=== PATIENT | male | born 1955 | race Caucasian/White ===

== ENCOUNTER 2022-04-01 16:39 | Outpatient (CLI) | payer MEDICARE, BC ==
[2022-04-01 17:30] LABS: CHOL/HDL RATIO 3.8 (<5.0); CHOLESTEROL 219 mg/dL; HDL CHOLESTEROL 57 mg/dL; LDL CHOLESTEROL,CALCULATED 144 mg/dL; LDL/HDL RATIO 2.5 (<3.6); TRIGLYCERIDES 91 mg/dL; VLDL CHOLESTEROL 18 mg/dL
[2022-04-01 20:59] LABS: ESTIMATED AVERAGE GLUCOSE 91 mg/dL (70-100); HEMOGLOBIN A1c% 4.8 % (4.27-6.07)
[2022-04-02 06:10] LABS: HCV AB <0.1 s/co ratio (0.0-0.9)
== END 2022-04-01 16:40 | disposition home or self-care (01) ==
LOC: LAB 16:39
PROVIDERS: ATTEND Internal Medicine
DX: Z13.1 Encounter for screening for diabetes mellitus (principal); Z13.220 Encounter for screening for lipoid disorders; Z11.59 Encounter for screening for other viral diseases
CPT/HCPCS: 36415; 80061; 83036; 83721; 86803

== ENCOUNTER 2022-04-07 08:01 | Outpatient (CLI) | payer BC, MEDICARE ==
--- NOTE | 2022-04-07 09:42 | Ultrasound Report ---
PROCEDURE: Aorta Screening INDICATIONS: SCREENING FOR AAA TECHNIQUE: Real time scanning was performed of the aorta and iliac arteries, with image documentatio n. COMPARISON: None FINDINGS: Aorta: Proximal aortic diameter measures 3.4 x 3.2 cm. Mid-aorta measures 2.6 x 2.6 cm. Distal aor tic diameter is 1.9 x 1.9 cm. Iliac arteries: Right common iliac artery measures 1.1 x 1.1 cm. Left common iliac artery measures 1.0 x 1.1 cm. There is mild to moderate atherosclerotic calcification noted most prominent distally at the bifurcat ion. IMPRESSION: 1. Proximal infrarenal abdominal aortic aneurysm measuring 3.4 x 3.2 cm. If further evaluation of aor ta is warranted CTA of the abdomen and pelvis may be of further clinical value. 2. [id number] atherosclerotic calcifications noted throughout the aorta most prominent distally at the bifurcation. Reviewed by: Tony Rodriguez MD on 04/07/2022 9:40 AM PDT Approved by: Tony Rodriguez MD on 04/07/2022 9:40 AM PDT Station ID: [id number]
== END 2022-04-07 08:02 | disposition home or self-care (01) ==
LOC: DI 08:01
PROVIDERS: ATTEND Internal Medicine
DX: Z13.6 Encounter for screening for cardiovascular disorders (principal); Z87.891 Personal history of nicotine dependence; I71.4 Abdominal aortic aneurysm, without rupture; I70.0 Atherosclerosis of aorta

== ENCOUNTER 2023-03-01 15:05 | Outpatient (CLI) | payer BC, MEDICARE ==
[2023-03-01 16:06] LABS: CHOL/HDL RATIO 3.3 (<5.0); CHOLESTEROL 212 mg/dL; HDL CHOLESTEROL 64 mg/dL; LDL CHOLESTEROL,CALCULATED 120 mg/dL; LDL/HDL RATIO 1.9 (<3.6); TRIGLYCERIDES 141 mg/dL (48-352); VLDL CHOLESTEROL 28 mg/dL
[2023-03-01 20:06] LABS: ESTIMATED AVERAGE GLUCOSE 94 mg/dL (70-100); HEMOGLOBIN A1c% 4.9 % (4.27-6.07)
== END 2023-03-01 15:06 | disposition home or self-care (01) ==
LOC: LAB 15:05
PROVIDERS: ATTEND Internal Medicine
DX: Z13.220 Encounter for screening for lipoid disorders (principal); Z13.1 Encounter for screening for diabetes mellitus
CPT/HCPCS: 36415; 80061; 83036; 83721

== ENCOUNTER 2023-03-13 09:45 | Outpatient (CLI) | payer BC, MEDICARE ==
--- NOTE | 2023-03-13 13:32 | Ultrasound Report ---
PROCEDURE: Retroperitoneal Limited INDICATIONS: Abdominal aortic aneurysm TECHNIQUE: Real-time scanning was performed of the abdominal aorta, with image documentation. COMPARISON: 04/07/2022 FINDINGS: Proximal abdominal aorta now measures 2.6 x 2.6 cm. Mid aorta measures 1.9 x 1.9 cm, and the distal a bdominal aorta measures 1.7 x 1.8 cm. The right and left common iliac arteries measure 1.6 x 1.8 cm and 1.6 x 1.7 cm respectively. Mild atherosclerotic irregularity noted. IMPRESSION: Mild atherosclerotic plaque without evidence of abdominal aortic aneurysm Reviewed by: Triston Boyce MD on 03/13/2023 12:30 PM JACK Approved by: Triston Boyce MD on 03/13/2023 12:30 PM AKMIKE Station ID: [id number]
== END 2023-03-13 09:46 | disposition home or self-care (01) ==
LOC: DI 09:45
PROVIDERS: ATTEND Internal Medicine
DX: I71.9 Aortic aneurysm of unspecified site, without rupture (principal); I70.0 Atherosclerosis of aorta

== ENCOUNTER 2023-04-07 16:24 | Outpatient (CLI) | payer BC ==
--- NOTE | 2023-04-07 16:48 | Sleep Patient Instructions ---
Sleep Center Visit Summary - Patient Visit Information Reason for Visit: Annual visit for PAP therapy - Patient Instructions Additional Instructions: You will continue with CPAP therapy with pressure set at 6-15 cmH2O. A supply prescription will be updated with your DME. We encourage you to continue to try to lose weight. Please follow up with the sleep care office in 1 year. - Clinic Information Contact: [facility] [address] [place] [address] [email or web address] T: [phone]
--- NOTE | 2023-04-07 16:53 | SLEEP CARE CONSULTATION ---
Information from patient questionnaire entered by Tammy Soria. I have reviewed and concur with the information entered by Tammy Soria. This document represents the service I personally performed and the decisions made by me, Perla Thompson ARNP. History of Present Illness Service Date and Time: 04/07/2023 1624 Previous diagnosis: Very Severe AHI: 84.8 (2019) Reason for follow up: annual (LAST SEEN 02/2022) Equipment type: CPAP (ResMed Airsense 10, s/u 03/2020; SD CARD NEEDED) Equipment obtained from: [employer] (getting supplies as needed) Mask style: Nasal Mask brand: Respironics (Dream Wisp, medium) Backup mask available: Yes (other mask ) Last cushion change: 3-4 months Prior sleep studies: Yes Year and Where: November 2019 [facility] in [place], [place] Type of Sleep Study: Home sleep study HPI additional information: CARMELINA DEL REAL was diagnosed to have very severe, AHI 84.8, obstructive sleep apnea-hypopnea syndrome and returned today for CPAP therapy annual follow-up. Sleep Study - Results Type of Sleep Study: Home sleep study Prior sleep studies: Yes Year and Where: November 2019 [facility] in [place], [place] CPAP Compliance Data - Data Reviewed with Patient Average duration of nightly device use: 7 hours 45 minutes Compliance rate %: 97 (175/180 days used) Current pressure setting (cmH2O): 6-15 (avg 8.8, max 9.8) Average residual AHI: 0.1 Central apnea: 0 Obstructive apnea: 0 Average large leak: 0 L/min Subjective Missed days of use due to: reports: travel (camping) Patient concerns: denies: aerophagia, mask discomfort, air blowing in eyes, mask leak noise, condensation in mask/hose, nasal congestion, dry mouth, nose, throat, epistaxis Observed to snore while using device: No Current pressure setting perceived as: comfortable On therapy, patient: reports: sleeping better, awakening more refreshed, being more awake and alert during the day, more rested overall. denies: drowsiness while driving Initial [place] Sleepiness Scale score: 6 (03/12/2022) Current [place] Sleepiness Scale score: 5 (04/07/23) Allergies and Home Medications Known drug allergies: Yes (Atropine) Drug allergies reviewed: Yes Home medication list reviewed: Yes (no changes) Allergy and home medication list: Home Medications Medication Instructions Recorded Confirmed Last Taken Type Finasteride [Propecia] See Rx Instructions .ROUTE .COMPLEX 04/07/23 04/07/23 Unknown History Multivitamin See Rx Instructions .ROUTE .COMPLEX 04/07/23 04/07/23 Unknown History Tamsulosin HCl [Flomax] See Rx Instructions .ROUTE .COMPLEX 04/07/23 04/07/23 Unknown History Umeclidinium Brm/Vilanterol Tr See Rx Instructions .ROUTE .COMPLEX 04/07/23 04/07/23 Unknown History [Anoro Ellipta 62.5-25 Mcg INH] Review of Systems Review of systems same as previous: Yes (no changes) Physical Exam Vital signs obtained and entered by: TAMMY Turpin MA Blood Pressure: 114/79 (LEFT) Cuff size: wrist Heart Rate: 81 O2 Saturation: 95 Height: 5 ft 9 in Weight: 180 lb 3.2 oz Body Mass Index: 26.6 BMI Classification: Overweight Impression and Plan 1. Obstructive Sleep Apnea-Hypopnea Syndrome, very severe, with good treatment compliance and good apnea control. On CPAP therapy, the patient has better sleep quality and is more rested overall. Patient had some questions about Inspire implant therapy. I answered them in depth but he decided not to pursue this at this point. If he should decide, he may call our office for a referral. He voiced understanding. Patient has significant improvement of their sleep apnea and is satisfied with current CPAP therapy. Patient denies problems with oral dryness, nasal congestion, epistaxis, skin irritation or aerophagia. Patient's apnea severity and rationale for treatment to reduce apnea, improve sleep quality and reduce cardiovascular and cerebrovascular events was reviewed. I also reviewed the benefit of consistent device use of CPAP for emphysema. 2. Overweight, unspecified. Currently patients BMI is 26.6. Obesity increases the risk of apnea, CPAP pressure requirements and overall health risks especially cardiovascular and diabetes. Thus patient is advised to lose weight. * Continue auto CPAP pressure at 6-15 cmH2O * Update supplies * Notify me if snoring with mask or feeling that the pressure is too much or too little * Attempt to lose weight * Call this office if any problems using CPAP * Return for follow up in 1 year, or sooner if concerns arise Counseling Topics: Spare mask, Weight loss health impact Prescriptions: Device supplies Visit Type: In Office Time Spent with Patient (minutes): 20 Provider Statement: I spent 100% of the Face to Face Visit with the patient with greater than 50% spent counseling the patient and coordination of care.
[2023-04-07 17:00] VITALS: BP 114/79; O2SAT 95
== END 2023-04-07 16:25 | disposition home or self-care (01) ==
LOC: SC 16:24
PROVIDERS: ATTEND Nurse Practitioner Family
DX: G47.33 Obstructive sleep apnea (adult) (pediatric) (principal); E66.3 Overweight; Z68.26 Body mass index [BMI] 26.0-26.9, adult
CPT/HCPCS: 99212; 99213

== ENCOUNTER 2024-03-01 16:04 | Outpatient (CLI) | payer BC ==
[2024-03-01 16:28] LABS: CHOL/HDL RATIO 3.6 (<5.0); CHOLESTEROL 224 mg/dL; HDL CHOLESTEROL 62 mg/dL; LDL CHOLESTEROL,CALCULATED 135 mg/dL; LDL/HDL RATIO 2.2 (<3.6); TRIGLYCERIDES 134 mg/dL; VLDL CHOLESTEROL 27 mg/dL
[2024-03-01 23:35] LABS: ESTIMATED AVERAGE GLUCOSE 88 mg/dL (70-100); HEMOGLOBIN A1c% 4.7 % (4.27-6.07)
== END 2024-03-01 16:05 | disposition home or self-care (01) ==
LOC: LAB 16:04
PROVIDERS: ATTEND Internal Medicine
DX: Z13.1 Encounter for screening for diabetes mellitus (principal); Z13.220 Encounter for screening for lipoid disorders
CPT/HCPCS: 36415; 80061; 83036; 83721